=== PATIENT | male | born 1995 | race Two or more races ===

== ENCOUNTER 2023-04-24 20:06 | Emergency (ER) | payer OTHER ==
[~2023-04-24] VITALS: Ht 157.5 cm; Wt 59.8 kg
[2023-04-24] MEDS ORDERED: KETOROLAC TROMETH 60MG/2ML VIAL IM ONE (22:00)
[2023-04-24] MEDS ORDERED: HYDROcodone-ACET 10/325MG TAB PO ONE (22:00)
[2023-04-24 23:01] VITALS: BP 118/65; PULSE 60; RESP 18; TEMP 98.3; O2SAT 99
[2023-04-25] MEDS ORDERED: TRAM50TA2 PO (00:15)
[2023-04-25] MEDS ORDERED: IBUP-1455 PO (00:15)
== END 2023-04-25 01:03 | disposition home or self-care (01) ==
LOC: ER 20:06
DX: S20.219A Contusion of unspecified front wall of thorax, initial encounter (principal); S30.0XXA Contusion of lower back and pelvis, initial encounter; X58.XXXA Exposure to other specified factors, initial encounter; Y93.89 Activity, other specified; Y92.89 Other specified places as the place of occurrence of the external cause; Y99.8 Other external cause status
CPT/HCPCS: 71046; 72040; 72070; 96372; 99284; J1885